=== PATIENT | male | born 1955 | race Caucasian/White ===

== ENCOUNTER 2017-12-01 06:03 | Emergency (ER) | payer OTHER, MEDICAID ==
[~2017-12-01] VITALS: Ht 172.7 cm; Wt 98.1 kg
[2017-12-01 06:12] VITALS: Ht 172.7 cm; Wt 98.1 kg
[2017-12-01 06:51] VITALS: BP 149/97
== END 2017-12-01 06:51 | disposition home or self-care (01) ==
LOC: ED 06:03
DX: J06.9 Acute upper respiratory infection, unspecified (principal); I10 Essential (primary) hypertension

== ENCOUNTER 2018-06-20 23:52 | Observation (INO) | payer OTHER ==
[~2018-06-20] VITALS: Ht 172.7 cm; Wt 95.7 kg
[2018-06-21 00:29] LABS: BASOPHIL % 1.4 % (0-2); PLATELET COUNT 160 x10^3mcL (130-400); RED CELL DISTRIBUTION WIDTH 19.9 % (11.5-14.5)
[2018-06-21 00:34] LABS: CARBON DIOXIDE 24.1 mmol/L (21-32); CHLORIDE SERUM 106 mmol/L (98-107); CREATININE SERUM 0.7 mg/dL (0.7-1.3); GFR1 > 60 mL/min; GLUCOSE SERUM 99 mg/dL (74-106); POTASSIUM SERUM 3.8 mmol/L (3.5-5.1); SODIUM SERUM 140 mmol/L (136-145)
[2018-06-21 00:41] LABS: ALKALINE PHOSPHATASE 208 U/L (46-116); ALT/SGPT 52 U/L (16-63); AST/SGOT 100 U/L (15-37); BILIRUBIN TOTAL 4.9 mg/dL (0.20-1.00); LIPASE 288 IU/L (73-393); TOTAL PROTEIN, SERUM 7.3 g/dL (6.4-8.2); TRIGLYCERIDES 73 mg/dL (<150)
[2018-06-21 00:48] LABS: ALBUMIN 2.5 g/dL (3.4-5.0); CHOLESTEROL 131 mg/dL (<200); CHOLESTEROL/HDL RATIO 4.1; HDL CHOLESTEROL 32 mg/dL (40-60)
[2018-06-21 01:21] LABS: FREE T4 0.96 ng/dL (0.76-1.46); T3 TOTAL 0.79 ng/mL
[2018-06-21 01:57] LABS: FREE THYROXINE INDEX 1.4 ug/dL (1.4-4.5); T4(THYROXINE) 4.1 ug/dL (4.7-13.3)
[2018-06-21 02:08] LABS: microscopic required? YES; urine erythrocyte 3+ (NEGATIVE)
[2018-06-21] MEDS ORDERED: ZESTRIL20 MG PO (02:58)
[2018-06-21 03:27] VITALS: BP 153/86
[2018-06-21 05:20] VITALS: BP 171/89
[2018-06-21 06:26] VITALS: BP 144/86
[2018-06-21 08:46] VITALS: BP 148/87
[2018-06-21] MEDS ORDERED: TRAMADOL HCL50 MG PO (09:36)
[2018-06-21 13:15] VITALS: BP 155/99
[2018-06-21 13:18] VITALS: BP 155/99
== END 2018-06-21 14:40 | disposition home or self-care (01) | DRG 206 ==
LOC: ED 23:52 → DU 06-21 02:31
PROVIDERS: Specialist
DX: M94.0 Chondrocostal junction syndrome [Tietze] (principal); I16.0 Hypertensive urgency; I10 Essential (primary) hypertension; K76.0 Fatty (change of) liver, not elsewhere classified; E66.9 Obesity, unspecified
CPT/HCPCS: 83880; 84439; G0378; J2270; J2405; J7030; Q0092

== ENCOUNTER 2018-07-02 11:50 | Emergency (ER) | payer OTHER, MEDICAID ==
[~2018-07-02] VITALS: Ht 167.6 cm; Wt 95.7 kg
[~2018-07-02 11:50] MED LIST: TRAMADOL HCL50 MG PO; ZESTRIL20 MG PO
[2018-07-02 11:55] VITALS: Ht 167.6 cm; Wt 95.7 kg
[2018-07-02 12:26] LABS: PLATELET COUNT 171 x10^3mcL (130-400)
[2018-07-02 12:30] LABS: RED CELL DISTRIBUTION WIDTH 17.5 % (11.5-14.5)
[2018-07-02 12:37] LABS: CALCIUM 8.5 mg/dL (8.5-10.1); CARBON DIOXIDE 26.8 mmol/L (21-32); CHLORIDE SERUM 110 mmol/L (98-107); CREATININE SERUM 0.9 mg/dL (0.7-1.3); GFR1 > 60 mL/min; GLUCOSE SERUM 115 mg/dL (74-106); POTASSIUM SERUM 3.9 mmol/L (3.5-5.1); SODIUM SERUM 145 mmol/L (136-145)
[2018-07-02 12:40] LABS: ALKALINE PHOSPHATASE 194 U/L (46-116); ALT/SGPT 50 U/L (16-63); AST/SGOT 88 U/L (15-37); BILIRUBIN TOTAL 2.12 mg/dL (0.20-1.00); CHOLESTEROL 143 mg/dL (<200); HDL CHOLESTEROL 47 mg/dL (40-60); LIPASE 223 IU/L (73-393); TOTAL PROTEIN, SERUM 7.6 g/dL (6.4-8.2); TRIGLYCERIDES 99 mg/dL (<150)
[2018-07-02 12:43] LABS: ALBUMIN 2.5 g/dL (3.4-5.0)
[2018-07-02 13:00] LABS: T3 TOTAL 0.74 ng/mL
[2018-07-02 13:33] LABS: FREE T4 0.93 ng/dL (0.76-1.46); T4(THYROXINE) 5.3 ug/dL (4.7-13.3)
[2018-07-02 15:18] LABS: microscopic required? YES; urine erythrocyte 1+ (NEGATIVE)
[2018-07-02 19:36] VITALS: BP 160/90
== END 2018-07-02 19:36 | disposition short-term general hospital (02) ==
LOC: ED 11:50
PROVIDERS: Specialist
DX: I70.0 Atherosclerosis of aorta (principal); I10 Essential (primary) hypertension
CPT/HCPCS: 83880; 84439; J1885; J2270; J2405; J3490; J7030; Q0092; Q9967